=== PATIENT | male | born 1990 | race African-American/Black ===

== ENCOUNTER 2016-06-08 17:41 | Emergency (ER) | payer SELFPAY ==
--- NOTE | 2016-06-08 18:31 | ER Document Report ---
ED Medical Screen (RME) - General Stated Complaint: LIGHT HEADED,ABDOMINAL PAIN Mode of Arrival: Ambulatory Information source: Patient Notes: Patient presents complaining of lightheadedness since this morning. Patient additionally complains of generalized abdominal pain. Patient denies any nausea or vomiting. Patient does report some diarrhea. No fever. hx: None I have greeted and performed a rapid initial assessment of this patient. A comprehensive ED assessment and evaluation of the patient, analysis of test results and completion of the medical decision making process will be conducted by additional ED providers. TRAVEL OUTSIDE OF THE [place] IN LAST 30 DAYS: No - Related Data Allergies/Adverse Reactions: No Known Allergies Allergy (Verified 06/08/16 18:29) Past Medical History - Immunizations Hx Diphtheria, Pertussis, Tetanus Vaccination: Yes Physical Exam - Vital signs Vitals: Temp Pulse Resp BP Pulse Ox 98.2 F 70 18 138/70 H 99 06/08/16 18:04 06/08/16 18:04 06/08/16 18:04 06/08/16 18:04 06/08/16 18:04 - Abdominal Tenderness: Tender - Generalized Course - Vital Signs Vital signs: Temp Pulse Resp BP Pulse Ox 98.2 F 70 18 138/70 H 99 06/08/16 18:04 06/08/16 18:04 06/08/16 18:04 06/08/16 18:04 06/08/16 18:04
[2016-06-08 19:45] LABS: APPEARANCE,URINE CLEAR; BILIRUBIN,URINE NEGATIVE (NEGATIVE); GLUCOSE, URINE NEGATIVE (NEGATIVE); KETONES,URINE NEGATIVE (NEGATIVE); LEUKOCYTE ESTERASE,URINE NEGATIVE (NEGATIVE); NITRITE,URINE NEGATIVE (NEGATIVE); PROTEIN,URINE NEGATIVE (NEGATIVE); URINE SPECIFIC GRAVITY 1.016; UROBILINOGEN,URINE NEGATIVE mg/dL (<2.0)
--- NOTE | 2016-06-08 23:24 | ER Document Report ---
ED General - General Chief Complaint: Abdominal Pain Stated Complaint: LIGHT HEADED,ABDOMINAL PAIN Mode of Arrival: Ambulatory Notes: Patient is a 26-year-old male without past medical history, no prior surgical history who presents with 8 hours of gradual onset epigastric abdominal discomfort and a feeling of abdominal bloating. Nothing improves or worsens the symptoms although he notes they have resolved since he arrived here in the emergency department. Denies a history of similar symptoms in the past. Notes that he did have multiple episodes of nonbloody, loose diarrhea earlier today but this likewise has resolved. Denies any vomiting, chest pain or shortness of breath. No fever. He has not seen his primary care doctor regarding today' s concerns. TRAVEL OUTSIDE OF THE [place] IN LAST 30 DAYS: No - Related Data Allergies/Adverse Reactions: No Known Allergies Allergy (Verified 06/08/16 18:29) Past Medical History - General Information source: Patient - Social History Smoking Status: Never Smoker Chew tobacco use (# tins/day): No Frequency of alcohol use: Occasional Drug Abuse: None Lives with: Spouse/Significant other Family History: Reviewed & Not Pertinent Patient has suicidal ideation: No Patient has homicidal ideation: No Renal/ Medical History: Denies: Hx Peritoneal Dialysis - Immunizations Hx Diphtheria, Pertussis, Tetanus Vaccination: Yes Review of Systems - Review of Systems Notes: Constitutional: Negative for fever. HENT: Negative for sore throat. Eyes: Negative for visual changes. Cardiovascular: Negative for chest pain. Respiratory: Negative for shortness of breath. Gastrointestinal: Positive for abdominal pain and diarrhea Genitourinary: Negative for dysuria. Musculoskeletal: Negative for back pain. Skin: Negative for rash. Neurological: Negative for headaches, weakness or numbness. 10 point ROS negative except as marked above and in HPI. Physical Exam - Vital signs Vitals: Temp Pulse Resp BP Pulse Ox 98.2 F 70 18 138/70 H 99 06/08/16 18:04 06/08/16 18:04 06/08/16 18:04 06/08/16 18:04 06/08/16 18:04 Interpretation: Normal Notes: PHYSICAL EXAMINATION: GENERAL: Well-appearing, well-nourished and in no acute distress. HEAD: Atraumatic, normocephalic. EYES: Pupils equal round and reactive to light, extraocular movements intact, sclera anicteric, conjunctiva are normal. ENT: nares patent, oropharynx clear without exudates. Moist mucous membranes. NECK: Normal range of motion, supple without lymphadenopathy LUNGS: Breath sounds clear to auscultation bilaterally and equal. No wheezes rales or rhonchi. HEART: Regular rate and rhythm without murmurs ABDOMEN: Soft, nontender, normoactive bowel sounds. No guarding, no rebound. No masses appreciated. EXTREMITIES: Normal range of motion, no pitting or edema. No cyanosis. NEUROLOGICAL: No focal neurological deficits. Moves all extremities spontaneously and on command. PSYCH: Normal mood, normal affect. SKIN: Warm, Dry, normal turgor, no rashes or lesions noted. Course - Re-evaluation Re-evalutation: 06/08/16 23:21 Patient presents with epigastric abdominal pain and diarrhea that is now completely resolved. Patient says he was somewhat lightheaded initially but this is all resolved at this time. He has no focal abdominal tenderness on exam. Denies any symptoms. He has not had any vomiting and states that his symptoms have been resolved since he arrived to the emergency department. The exact etiology of patient's presentation is unclear but I do not suspect an acute hepatitis, biliary pathology, pancreatitis, or bowel obstruction. Patient is declining any laboratory evaluations I believe this is acceptable given his overall reassuring appearance, vitals and abdominal exam. At this time will discharge with return precautions and follow-up recommendations. Verbal discharge instructions given a the bedside and opportunity for questions given. Medication warnings reviewed. Patient is in agreement with this plan and has verbalized understanding of return precautions and the need for primary care follow-up in the next 24-72 hours. - Vital Signs Vital signs: Temp Pulse Resp BP Pulse Ox 98.7 F 83 16 130/82 H 96 06/08/16 23:45 06/08/16 23:45 06/08/16 23:45 06/08/16 23:45 06/08/16 23:45 Discharge - Discharge Clinical Impression: Abdominal pain Qualifiers: Abdominal location: epigastric Qualified Code(s): R10.13 - Epigastric pain Condition: Good Disposition: HOME, SELF-CARE Additional Instructions: You have been seen in the Emergency Department (ED) for abdominal pain. Your evaluation did not identify a clear cause of your symptoms but was generally reassuring. Please follow up with your doctor as soon as possible regarding today's emergent visit and the symptoms that are bothering you. Return to the ED if your abdominal pain worsens or fails to improve, you develop bloody vomiting, bloody diarrhea, you are unable to tolerate fluids due to vomiting, fever greater than 101, or other symptoms that concern you. Forms: Return to Work
[2016-06-08 23:47] VITALS: BP 130/82
== END 2016-06-08 23:48 | disposition home or self-care (01) ==
LOC: ER 17:41
DX: R10.13 Epigastric pain (principal); R19.7 Diarrhea, unspecified; R42 Dizziness and giddiness
CPT/HCPCS: 81001; 99284